=== PATIENT | male | born 1960 | race Caucasian/White ===

== ENCOUNTER → 2017-10-16 | Outpatient (CLI) | payer BC ==
[~2017-10-16] MED LIST: CONTRAST GIVEN MC PRN; IOHEXOL 240 MG/ML 50ML VIAL. ONE; IOHEXOL 240 MG/ML 50ML VIAL. PO ONE; IOHEXOL 300 MG/ML 100ML VIAL. IV ONE
--- NOTE | 2017-10-16 13:14 | RAD ---
CT of the pelvis with IV and oral contrast 10/16/2017 Indication: 57-year-old male with lower abdominal pain and history of diverticulosis. [facility] office was contacted and deferred on the additional abdominal exam. Discussion: Multidetector CT imaging of the pelvis was performed following the administration of intravenous and oral contrast. Oral contrast is noted to reach the distal large bowel, though opacification of the distal colon and rectum is suboptimal. Descending colonic diverticulosis is noted. There is very mild pericolonic inflammatory change involving the distal descending colon the left lower quadrant. Findings may represent a very mild or early diverticulitis. No pericolonic abscess or evidence of pneumoperitoneum is identified. The remainder of the partially visualized large and small bowel are grossly unremarkable. The appendix is visualized and normal in appearance. The solid viscera of the abdomen are done included in this exam. Limited visualization of the bladder is grossly unremarkable. No acute osseous changes are seen. Impression: Distal colon diverticulosis with mild associated inflammatory change in the distal ascending colon, within the left lower quadrant, possibly representing mild or early diverticulitis PQRS Compliance Statement: One or more of the following individualized dose reduction techniques were utilized for this examination: 1. Automated exposure control 2. Adjustment of the mA and/or kV according to patient size 3. Use of iterative reconstruction technique
== END | disposition home or self-care (01) ==
LOC: EDBD 09:51 → CT 09:51
PROVIDERS: ATTEND Family Medicine
DX: K57.30 Diverticulosis of large intestine without perforation or abscess without bleeding (principal); Z87.891 Personal history of nicotine dependence
CPT/HCPCS: 74170; Q9966; Q9967

== ENCOUNTER → 2017-11-03 | Day surgery (SDC) | payer BC ==
[~2017-11-03] MED LIST changes: -CONTRAST GIVEN MC PRN; -IOHEXOL 240 MG/ML 50ML VIAL. ONE; -IOHEXOL 240 MG/ML 50ML VIAL. PO ONE; -IOHEXOL 300 MG/ML 100ML VIAL. IV ONE; +LIDOCAINE 1% PF 2 ML VIAL. ID; +LIDOCAINE 2% PF Vial for OR 5 ML VIAL.; +MIDAZOLAM HCL/PF 2 MG/2 ML VIAL. IV; +PROPOFOL 20 ML IV; +fentaNYL PF VIAL 100 MCG/2 ML VIAL IV
[2017-11-03] MEDS: IV RINGERS,LACTATED 1000ML 1,000 ML IV (10:29)
== END | disposition home or self-care (01) ==
LOC: ENDOS 09:56
DX: K57.30 Diverticulosis of large intestine without perforation or abscess without bleeding (principal); K64.0 First degree hemorrhoids; F32.9 Major depressive disorder, single episode, unspecified; E78.5 Hyperlipidemia, unspecified; Z91.013 Allergy to seafood; Z82.3 Family history of stroke; Z82.49 Family history of ischemic heart disease and other diseases of the circulatory system; Z72.89 Other problems related to lifestyle
CPT/HCPCS: 45378; J2704

== ENCOUNTER → 2018-11-13 | Outpatient (CLI) | payer BC ==
[2017-11-03 11:10] VITALS: BP 128/84
[~2018-11-13] MED LIST changes: +CONTRAST GIVEN. MC PRN; +IOHEXOL 240 MG/ML 50ML VIAL. PO ONE; +IOHEXOL 300 MG/ML 100ML VIAL. IV ONE; -LIDOCAINE 1% PF 2 ML VIAL. ID; -LIDOCAINE 2% PF Vial for OR 5 ML VIAL.; -MIDAZOLAM HCL/PF 2 MG/2 ML VIAL. IV; +NO HOME MEDS; -PROPOFOL 20 ML IV; -fentaNYL PF VIAL 100 MCG/2 ML VIAL IV
--- NOTE | 2018-11-13 12:19 | RAD ---
CT ABD PELV W/ORAL IV CONTRAST Indication: Diverticulitis Technique: Postcontrast CT imaging was performed of the abdomen and pelvis, oral contrast also given, multiplanar reconstruction images submitted. One or more of the following individualized dose reduction techniques were utilized for this examination: 1. Automated exposure control 2. Adjustment of the mA and/or kV according to patient size 3. Use of iterative reconstruction technique. Comparison: Pelvis CT October 16, 2017, no previous abdomen exam available Findings: There is no abnormality of the limited visualized lung bases. There are a few hypodense foci of the liver. Largest foci of the right lobe have density characteristics suggestive of cysts, largest of these about 1.3 cm. There is no adrenal nodularity. Gallbladder is present without obvious intraluminal abnormality by CT. No focal abnormality is identified of the spleen or pancreas. Both kidneys enhance, no hydronephrosis. Bowel is not significantly dilated. There is no free air. There is scattered relatively mild diverticulosis greatest of the descending and sigmoid colon. There is mild wall thickening of the distal descending colon to the mid sigmoid colon. However previously seen inflammatory type change adjacent to the junction of descending and sigmoid colon has resolved. Normal appendix is visualized. There is no free fluid or abscess. There is small umbilical fascial defect, no internal bowel. There is fat in the inguinal canals greater on the right without internal bowel, on the right extending to the right scrotal region. There is similar nonspecific sclerosis of the left iliac bone near the sacroiliac joint. There is again some bony expansion of the sacrum probably due to underlying Tarlov cyst or cysts. IMPRESSION: 1. There is mild colonic diverticulosis. There is mild wall thickening of the distal descending colon to mid sigmoid colon as may be seen with mild diverticulitis or segmental colitis. However previously seen seen inflammatory type change about the colon has resolved. There is no abscess or free fluid. 2. There are a few hypodense foci of the liver, largest suggestive of cysts. Electronically signed by: Braxton Larose MD (11/13/2018 12:15 PM) [id number]
== END | disposition home or self-care (01) ==
LOC: CT 08:51
PROVIDERS: ATTEND Family Medicine
DX: K57.30 Diverticulosis of large intestine without perforation or abscess without bleeding (principal)
CPT/HCPCS: 74177; Q9966; Q9967

== ENCOUNTER → 2019-07-31 | Outpatient (CLI) | payer BC ==
[2017-11-03 11:10] VITALS: BP 128/84
--- NOTE | 2019-07-31 10:37 | RAD ---
EXAM: Abdomen and pelvis CT with intravenous contrast. HISTORY: Diverticulitis. TECHNIQUE: Computed tomographic images of the abdomen and pelvis were obtained following the administration of 75 cc Omnipaque 300 intravenous contrast. Multiplanar reformatting was performed. *One or more of the following individualized dose reduction techniques were utilized for this examination: 1. Automated exposure control. 2. Adjustment of the mA and/or kV according to patient size. 3. Use of iterative reconstruction technique. COMPARISON: 11/13/2018. FINDINGS: Evaluation of the lower thorax demonstrates posterior dependent and basilar atelectasis. There is no infiltrate or pleural effusion. The heart is normal in size. There is a 10 mm hypodense lesion within the hepatic dome. There is a 1.5 cm cyst within the inferior right hepatic lobe. There is an adjacent 3 mm hyperdense lesion which is too small to characterize. The gallbladder, pancreas, spleen, adrenal glands and kidneys are unremarkable. The appendix is unremarkable. There is distal colonic diverticulosis. There is focal fatty stranding adjacent to a diverticulum within the proximal sigmoid colon, likely due to slight diverticulitis. No free air or drainable fluid collection is seen. The bladder wall is slightly thickened due to relative decompression. The aorta is normal in caliber. There is no lymphadenopathy. There is no suspicious osseous lesion. IMPRESSION: 1. Acute diverticulitis involving the proximal sigmoid colon. No abscess or perforation is seen. The superimposed on distal colonic diverticulosis. 2. Stable small hypodense lesions within the liver, the largest of which within the inferior right hepatic lobe is consistent with a cyst. The smaller lesions are too small to characterize and may also be cysts or hemangiomas. Electronically signed by: Abbey Long MD (07/31/2019 10:34 AM) [place] [id number]
== END | disposition home or self-care (01) ==
LOC: CT 08:20
PROVIDERS: ATTEND Family Medicine
DX: K57.32 Diverticulitis of large intestine without perforation or abscess without bleeding (principal)
CPT/HCPCS: 74177; Q9966; Q9967